=== PATIENT | female | born 1980 | race African-American/Black ===

== ENCOUNTER 2018-07-21 05:03 | Emergency (ER) | payer SELFPAY ==
[~2018-07-21] VITALS: Ht 162.6 cm; Wt 57.2 kg
--- NOTE | 2018-07-21 05:32 | NUR ---
BIB FAMILY COMPLAINING OF EPIGASTRIC PAIN. SECONDARY TO N/V SINCE "230AM". AA/OX4, "I GAVE BLOOD EARLIER TODAY THEN I FELT NAUSEOUS AND THREW UP." AMBULATED TO HOSPITAL BED WITH STABLE GAIT. NO S/S SOB. SKIN PINK, WARM, DRY. ACTIVE BOWEL SOUNDS NOTED. MOVES ALL EXTREMITIES WELL. PEDAL PULSES PRESENT. VSS. NAD. WILL CONTINUE TO MONITOR.
[2018-07-21] MEDS ORDERED: ONDANSETRON 4 MG TAB.RAPDIS ONE (06:28)
[2018-07-21] MEDS ORDERED: ONDANSETRON 4 MG TAB.RAPDIS PO ONE (06:30)
[2018-07-21] MEDS ORDERED: ONDANSETRON HCL/PF 4 MG/2 ML VIAL IVP ONE (06:30)
[2018-07-21] MEDS ORDERED: KETOROLAC TROMETHAMINE INJ 30 MG/ML VIAL IV ONE (06:30)
[2018-07-21] MEDS ORDERED: IV NS 0.9% 1,000 ML BAG IV ONE (06:30)
--- NOTE | 2018-07-21 06:34 | NUR ---
Patient does not wish to proceed with medical care recommended by Dr. LOERA. Patient given information related to possible complications, up to and including , which could occur as a result of leaving the hospital at this time. Patient verbalizes understanding of risks involved due to leaving against medical advice. Patient has signed AMA form. AMBULATED WITH STABLE GAIT.
[2018-07-21 06:36] VITALS: BP 120/78
== END 2018-07-21 06:37 | disposition left against medical advice (07) ==
LOC: ER 05:04
DX: R10.13 Epigastric pain (principal); R11.10 Vomiting, unspecified
CPT/HCPCS: 99283; A4606; Q0162; Z7610